=== PATIENT | female | born 1980 | race Two or more races ===

== ENCOUNTER 2020-11-10 06:59 | Day surgery (SDC) | payer OTHER ==
[~2020-11-10 06:59] MED LIST: Acetaminophen 325 MG Tab PO SCH; Lidocaine 1% 4 ML ONE; Midazolam 1 MG/ML 2 ML SDV ONE; Ondansetron 4 MG/2 ML SDV ONE; Pregabalin 25 MG Cap PO SCH; Propofol 200 MG/20 ML SDV ONE; ceFAZolin 1 GM Vial ONE; fentaNYL 250 MCG/5 ML SDV ONE; oxyCODONE ER 10 MG TAB.ER PO SCH
[2020-11-10] MEDS ORDERED: Lactated Ringers 1,000 ML IV SCH (07:00)
[2020-11-10] MEDS ORDERED: Lidocaine 1%/Sod Bicarbonate in NS 8.4% 1 ML Syringe IDERM PRN (07:00)
[2020-11-10] MEDS ORDERED: Sodium Chloride 0.9% 10 ML Syringe FLUSH PRN (07:00)
[2020-11-10] MEDS ORDERED: Ondansetron 4 MG/2 ML SDV ONE (07:43)
[2020-11-10] MEDS ORDERED: Ondansetron 4 MG/2 ML SDV IVPUSH ONE (07:50)
[2020-11-10] MEDS ORDERED: HYDROmorphone 0.5 MG/0.5 ML Syringe ONE (08:11)
[2020-11-10] MEDS ORDERED: Ketamine 500 mg/10 ML MDV ONE (08:11)
--- NOTE | 2020-11-10 08:17 | PCM.PREANE ---
Preanesthetic Assessment - Procedure Proposed Procedure: Right Hip Video Arthroscopy - Anesthesia/Transfusion/Family Hx Anesthesia History: Prior Anesthesia Without Reaction Family History of Anesthesia Reaction: No Additional History: Recent removal of breast implants on 11/07/20 binder and bilateral drains in place. Implants removed as they were causing her pain. Dr. Whyte is aware and wishes to proceed with surgery today. - Review of Systems General: No Symptoms Pulmonary: No Symptoms Cardiovascular: No Symptoms Gastrointestinal: Nausea (Became nauseated following oral preop medication administration. Ondansetron 4 mg IV given and is no longer nauseated. ), Other (GERD, took protonix this morning, well controlled. ) Neurological: Headache (Migraines 4-5 per week. Seeing neurology Intercranial hypotension pending blood patch with chronic pain specialist in the future. ) Other: Reports: None (Chronic Pain related to back/hip/abdomen areas 01/12 today. Has been using dilaudid for management since 2019. Has not taken her dilaudid for 10 days. ), Thyroid Problems, Depression, Anxiety (PTSD) - Physical Assessment NPO Status Date: 11/09/20 NPO Status Time: 19:30 Vital Signs: Last Vital Signs Temp 36.5 C 11/10/20 07:05 Pulse 83 11/10/20 07:05 Resp 16 11/10/20 07:05 BP 117/93 H 11/10/20 07:05 Pulse Ox 99 11/10/20 07:05 Height: 1.65 m Weight: 76.657 kg ASA Class: 2 - Lab Values: Laboratory Last Values MRSA (PCR) Negative 11/02/20 12:52 - Allergies Allergies/Adverse Reactions: Allergies Allergy/AdvReac Type Severity Reaction Status Date / Time Sulfa (Sulfonamide Allergy yeast Verified 11/09/20 12:20 Antibiotics) infection tramadol Allergy night Verified 11/09/20 12:20 terrors dermabond Allergy unk Uncoded 11/09/20 12:20 PreAnesthesia Questionnaire HEENT History: Reports: Impaired Vision Cardiovascular History: Reports: High Cholesterol Respiratory History: Reports: None Gastrointestinal History: Reports: Hemorrhoids, Hiatal Hernia Genitourinary History: Reports: Renal Calculus [employer] History: Reports: Endometriosis, Musculoskeletal History: Reports: Other (See Below) Other Musculoskeletal History: hip pain, shoulder pain, claw foot, wrist pain, cervical strain Neurological History: Reports: Migraines Psychiatric History: Reports: Anxiety, PTSD, Other (See Below) Other Psychiatric History: insomnia Endocrine/Metabolic History: Reports: None Hematologic History: Reports: None Immunologic History: Reports: None Oncologic (Cancer) History: Reports: None Dermatologic History: Reports: None - Infectious Disease History Infectious Disease History: Reports: Novel Coronavirus, Other (See Below) Other Infectious Disease History: Spring 2020, recovered - Past Surgical History Head Surgeries/Procedures: Reports: None HEENT Surgical History: Reports: LASIK Cardiovascular Surgical History: Reports: None Respiratory Surgical History: Reports: None GI Surgical History: Reports: Colonoscopy, EGD Female Surgical History: Reports: Breast Implant, Hysterectomy, Kidney stone extraction, Lithotripsy/ESWL, Other (See Below) Other Female Surgeries/Procedures: laparoscopies for endometriosis Endocrine Surgical History: Reports: None Neurological Surgical History: Reports: None Oncologic Surgical History: Reports: None Dermatological Surgical History: Reports: None - SUBSTANCE USE Tobacco Use Status *Q: Former Tobacco User Recreational Drug Use History: No - HOME MEDS Home Medications: Home Meds Acetaminophen [Tylenol] 650 mg PO Q4H PRN 11/09/20 [History] Pantoprazole Sodium [Protonix] 40 mg PO DAILY 11/09/20 [History] Aspirin [Aspirin EC] 325 mg PO BID #84 tab 11/10/20 [Rx] - CURRENT (IN HOUSE) MEDS Current Meds: Current Medications Acetaminophen (Acetaminophen 325 Mg Tab) 975 mg PO ONETIME [facility] [place] Last Admin: 11/10/20 07:12 Dose: 975 mg Documented by: Lactated Ringer's (Ringers, Lactated) 1,000 mls @ 125 mls/hr IV ASDIRECTED [facility] [place] Stop: 11/10/20 23:00 Last Admin: 11/10/20 07:25 Dose: 125 mls/hr Documented by: Lidocaine/Sodium Bicarbonate (Lidocaine 1%/Sod Bicarbonate In Ns 8.4% 1 Ml Syringe) 0.25 ml IDERM ONETIME PRN PRN Reason: Prior to IV Start Stop: 11/10/20 18:00 Last Admin: 11/10/20 07:24 Dose: 0.25 ml Documented by: Oxycodone HCl (Oxycodone Er 10 Mg Tab.Er) 10 mg PO ONETIME [facility] [place] Last Admin: 11/10/20 07:12 Dose: 10 mg Documented by: Pregabalin (Pregabalin 25 Mg Cap) 50 mg PO ONETIME [facility] Last Admin: 11/10/20 07:12 Dose: 50 mg Documented by: Sodium Chloride (Sodium Chloride 0.9% 10 Ml Syringe) 10 ml FLUSH ASDIRECTED PRN PRN Reason: Keep Vein Open Stop: 11/10/20 18:00 Discontinued Medications Cefazolin Sodium (Cefazolin 1 Gm Vial) Confirm Administered Dose 2 gm .ROUTE .STK-MED ONE Stop: 11/10/20 06:30 Fentanyl (Fentanyl 250 Mcg/5 Ml Sdv) Confirm Administered Dose 250 mcg .ROUTE .STK-MED ONE Stop: 11/10/20 06:30 Lidocaine HCl (Xylocaine-Mpf 1%) Confirm Administered Dose 4 mls @ as directed .ROUTE .STK-MED ONE Stop: 11/10/20 06:29 Midazolam HCl (Midazolam 1 Mg/Ml 2 Ml Sdv) Confirm Administered Dose 2 mg .ROUTE .STK-MED ONE Stop: 11/10/20 06:30 Ondansetron HCl (Ondansetron 4 Mg/2 Ml Sdv) Confirm Administered Dose 4 mg .ROUTE .STK-MED ONE Stop: 11/10/20 06:29 Ondansetron HCl (Ondansetron 4 Mg/2 Ml Sdv) Confirm Administered Dose 4 mg .ROUTE .STK-MED ONE Stop: 11/10/20 07:44 Ondansetron HCl (Ondansetron 4 Mg/2 Ml Sdv) 4 mg IVPUSH ONETIME ONE Stop: 11/10/20 07:51 Last Admin: 11/10/20 07:45 Dose: 4 mg Documented by: Propofol (Propofol 200 Mg/20 Ml Sdv) Confirm Administered Dose 200 mg .ROUTE .STK-MED ONE Stop: 11/10/20 06:29 Vecuronium [place] (Vecuronium 10 Mg Vial) Confirm Administered Dose 10 mg .ROUTE .STK-MED ONE Stop: 11/10/20 06:30
[2020-11-10] MEDS ORDERED: Bupivacaine 0.25% 10 ML SDV ONE ×2 (08:21→08:23)
[2020-11-10] MEDS ORDERED: EPINEPHrine 1 MG/ML 30 ML MDV IRR SCH ×3 (08:45)
[2020-11-10] MEDS ORDERED: Ondansetron 4 MG/2 ML SDV IVPUSH PRN (09:15)
[2020-11-10] MEDS ORDERED: fentaNYL 100 MCG/2 ML SDV IVPUSH PRN (09:15)
[2020-11-10] MEDS ORDERED: Dexamethasone 4 MG/ML 5 ML MDV ONE (09:52)
[2020-11-10] MEDS ORDERED: Ketorolac 30 MG/ML SDV ONE (11:04)
--- NOTE | 2020-11-10 11:37 | CR ---
Right hip: Multiple fluoroscopic spot views were obtained of the right hip utilizing C-arm device in the operating room. Comparison: Prior right hip CT study of 10/04/20. Findings: Multiple radiographic images were obtained of the right hip during laparoscopic surgery. Fluoroscopy time is given as 66.5 seconds. Impression: 1. Procedural study as noted above. Diagnostic code #2
--- NOTE | 2020-11-10 11:41 | PCM.POSTAN ---
POST ANESTHESIA ASSESSMENT - MENTAL STATUS Mental Status: Somnolent - VITAL SIGNS Vital Signs: Last Vital Signs Temp 97.3 F 11/10/20 11:29 Pulse 69 11/10/20 11:29 Resp 21 H 11/10/20 11:29 BP 120/81 11/10/20 11:29 Pulse Ox 98 11/10/20 11:29 - RESPIRATORY Respiratory Status: Respiratory Rate WNL, Airway Patent, O2 Saturation Stable, Supplemental Oxygen - CARDIOVASCULAR CV Status: Pulse Rate WNL, Blood Pressure Stable - GASTROINTESTINAL GI Status: No Symptoms - PAIN Pain Score: 2 (says she has pain but sleeps) - POST OP HYDRATION Hydration Status: Adequate & Stable
[2020-11-10] MEDS: HYDROmorphone 0.5 MG/0.5 ML Syringe IVPUSH PRN ×2 (11:51→12:21)
[2020-11-10] MEDS ORDERED: Lactated Ringers 1,000 ML ONE (11:54)
[2020-11-10] MEDS ORDERED: HYDROmorphone 2 MG Tab PO ONE (13:19)
--- NOTE | 2020-11-10 14:11 | PCM48HPAN ---
Post Anesthesia Note - EVALUATION WITHIN 48HRS OF ANESTHETIC Vital Signs in Normal Range: Yes Patient Participated in Evaluation: Yes Respiratory Function Stable: Yes Airway Patent: Yes Cardiovascular Function Stable: Yes Hydration Status Stable: Yes Pain Control Satisfactory: Yes Nausea and Vomiting Control Satisfactory: Yes Mental Status Recovered: Yes Vital Signs: Last Vital Signs Temp 97.3 F 11/10/20 12:45 Pulse 50 L 11/10/20 13:15 Resp 14 11/10/20 13:15 BP 112/83 11/10/20 13:15 Pulse Ox 95 11/10/20 13:15 - COMMENTS/OBSERVATIONS Free Text/Narrative:: voided- up with daughter in room- will have mom and daughter with her all day.
--- NOTE | 2020-11-20 18:09 | PCM.OPNOTE ---
- General Post-Op/Procedure Note Date of Surgery/Procedure: 11/10/20 Operative Procedure(s): right hip video arthoscopy with acetabuloplasty, labral repair and femoroplasty Pre Op Diagnosis: right hip femoroacetabular impingement Post-Op Diagnosis: Same Anesthesia Technique: General ET Tube, Local Primary Surgeon: Yogi Whyte Anesthesia Provider: Jeane eYe Svp Programmatic Tv: Melanie Jaime EBL in mLs: 5 Complications: None Condition: Good
--- NOTE | 2020-11-20 18:48 | OR ---
DATE OF OPERATION: 11/10/2020 SURGEON: Yogi Whyte MD OPERATION PERFORMED: Right hip video arthroscopy with acetabuloplasty, labral repair, and femoroplasty. PREOPERATIVE DIAGNOSIS: Right hip femoral acetabular impingement. POSTOPERATIVE DIAGNOSIS: Right hip femoral acetabular impingement. ANESTHESIA: General endotracheal intubation with local. ANESTHESIA PROVIDER: Jeane Yee CRNA FILM PROCESS OPERATOR: Melanie Jaime PA-C. ESTIMATED BLOOD LOSS: Less than 5 mL. COMPLICATIONS: None. CONDITION: Stable. DESCRIPTION OF PROCEDURE: The patient was identified in the preoperative holding area. Proper site was marked and identified by the surgeon. The patient was taken back to the operating theater, where after adequate anesthesia, the patient was placed on a traction table. Traction boots were applied to the bilateral lower extremities. The perineal peg was then placed. Left lower extremity was placed in dependent position with no gross or fine traction applied. Right lower extremity was then placed in a traction boot and gross traction was applied. At this time, right hip was then sterilely prepped and draped in the usual sterile fashion. OR time- out was performed. The patient received 2 g IV Ancef. At this time, traction was applied to the right lower extremity until the joint was open. A spinal needle was then used to create a lateral portal. Under direct C-arm fluoroscopy, the lateral portal was identified. An incision was made and the trocar was placed. The scope was placed and it was found to be in good position and was not through the lateral labrum. At this time, with the use of spinal needle as well as C-arm fluoroscopy, an accessory anterior lateral portal was then created and was found to be in good position and the water was turned on. The patient was noted to have a tear at roughly the 2 o'clock position on the labrum with some erythema. I was able to then perform a capsulotomy using the Samurai blade. Once this was completed, debridement was done of the synovium above the tear and the tear was then identified. A full-radius ashtyn terra was then used to roughen the edge for repair. 4 Jose Guadalupe anchors with knots were then placed. All of these were then tied and was found to have adequate latter day of the bumper effect of the labrum with significant latter day of the bumper effect with significant repair of the tear. The patient otherwise did not have any large signs of significant overhang or crossover sign from previous radiographs. So, at this time, traction was taken off, and we did a T- capsulotomy down the femoral neck. The patient was noted to have a large cam lesion at this time, the full-radius ashtyn terra was then utilized. Under direct C-arm fluoroscopy anterior as well as anterolateral portion of the neck down all the way to the portion, where it showed on the CT scan, there was a cam lesion. Once this was found to be adequately resected under direct visualization as well as on C-arm fluoroscopy, excess saline was drained from the hip. A lateral femoral cutaneous block was then performed using 0.25% Marcaine. 3-0 nylon was used for closure of the portals. The patient was placed in a sterile soft dressing and sent to PACU in stable condition. BART /[id number]
== END 2020-11-10 14:50 | disposition home or self-care (01) ==
LOC: JD.SDS 06:59
PROVIDERS: ATTEND Orthopaedic Surgery
DX: M25.851 Other specified joint disorders, right hip (principal); M24.151 Other articular cartilage disorders, right hip; M25.512 Pain in left shoulder; R51.9 Headache, unspecified; K44.9 Diaphragmatic hernia without obstruction or gangrene; F41.9 Anxiety disorder, unspecified; G47.00 Insomnia, unspecified; E78.2 Mixed hyperlipidemia; E66.3 Overweight; Z68.29 Body mass index [BMI] 29.0-29.9, adult; Z88.2 Allergy status to sulfonamides; Z88.6 Allergy status to analgesic agent; Z91.09 Other allergy status, other than to drugs and biological substances; Z87.891 Personal history of nicotine dependence; Z86.16 Personal history of COVID-19; Z98.890 Other specified postprocedural states
CPT/HCPCS: 29914; 29916; 76000; 87641; A9270; C1713; J0171; J0690; J1100; J1170; J1885; J2250; J2405; J2704; J2710; J3010; J3490; J7120; 01202